=== PATIENT | male | born 1995 | race African-American/Black ===

== ENCOUNTER 2017-07-07 13:40 | Emergency (ER) | payer MEDICAID | END 2017-07-07 15:04 | disposition home or self-care (01) | LOC: D.ER 13:40 | DX: Z03.89 Encounter for observation for other suspected diseases and conditions ruled out (principal) ==

== ENCOUNTER 2018-04-28 18:30 | Emergency (ER) | payer MEDICAID ==
[~2018-04-28] VITALS: Ht 185.4 cm; Wt 90.9 kg
[2018-04-28 18:36] VITALS: Ht 185.4 cm; Wt 90.9 kg
[2018-04-28] MEDS ORDERED: STEROID (18:37)
[2018-04-28] MEDS ORDERED: AMOXICILLIN500 M1 PO (18:37)
[2018-04-28 19:59] LABS: BASOPHILS 0.4 % (0-2); EOSINOPHILS 4.9 % (0-7); HEMATOCRIT 42.4 % (42.0-54.0); HEMOGLOBIN 14.4 g/dL (13.5-17.5); IMMATURE GRANULOCYTES 0.1 % (0-5); MCH 29.1 pg (26.0-34.0); MCV 85.7 fL (80.0-100.0); MEAN PLATELET VOLUME 9.1 fL (7.4-10.4); MONOCYTES 7.9 % (2-11); NEUTROPHILS 58.7 % (40-80); PLATELET COUNT 216 10x3/uL (130-400); RBC 4.95 10x6/uL (4.20-6.10); RDW 13.1 % (11.5-14.5); WBC 8.1 10x3/uL (4.8-10.8)
[2018-04-28 20:13] LABS: ALBUMIN 4.1 g/dL (3.4-5.0); ALKALINE PHOSPHATASE 72 U/L (46-116); ALT (SGPT) 28 U/L (10-68); CALC OSMOLALITY 280 mosm/kg (275-300); CALCIUM 8.7 mg/dL (8.5-10.1); CARBON DIOXIDE 28.8 mmol/L (21.0-32.0); CHLORIDE - SERUM 104 mmol/L (98-107); CREATININE - SERUM 1.3 mg/dL (0.6-1.3); GLUCOSE 89 mg/dL (74-106); PROTEIN - SERUM 7.6 g/dL (6.4-8.2); SODIUM 141 mmol/L (136-145); UREA NITROGEN 16 mg/dL (7-18); eGFR NON AFRICAN AMERICAN 73 mL/min (90-120)
[2018-04-28 20:17] LABS: TROPONIN-I < 0.017 ng/mL (0.000-0.060)
[2018-04-28 21:38] VITALS: BP 128/76
== END 2018-04-28 21:43 | disposition home or self-care (01) ==
LOC: D.ER 18:30
PROVIDERS: Family Medicine
DX: R07.89 Other chest pain (principal)

== ENCOUNTER 2018-10-12 05:58 | Emergency (ER) | payer SELFPAY ==
[~2018-10-12] VITALS: Ht 185.4 cm; Wt 88.6 kg
[~2018-10-12 05:58] MED LIST: AMOXICILLIN500 M1 PO; STEROID
[2018-10-12 06:04] VITALS: BP 123/66; Ht 185.4 cm; Wt 88.6 kg
== END 2018-10-12 06:32 | disposition home or self-care (01) ==
LOC: D.ER 05:58
DX: T17.1XXA Foreign body in nostril, initial encounter (principal); X58.XXXA Exposure to other specified factors, initial encounter; Y93.89 Activity, other specified; Y92.019 Unspecified place in single-family (private) house as the place of occurrence of the external cause; R04.0 Epistaxis